=== PATIENT | female | born 2000 | race American Indian/Alaskan Native ===

== ENCOUNTER 2022-04-02 13:08 | Outpatient (CLI) | payer OTHER ==
[2022-04-02 17:22] VITALS: BP 125/57
== END 2022-04-02 17:39 | disposition home or self-care (01) ==
LOC: TRG 13:08 → APU 13:10 → TRG 17:39
PROVIDERS: ATTEND Obstetrics & Gynecology
DX: Z34.83 Encounter for supervision of other normal pregnancy, third trimester (principal); Z3A.37 37 weeks gestation of pregnancy
CPT/HCPCS: 59025

== ENCOUNTER 2022-04-08 11:19 | Inpatient (IN) | payer OTHER ==
[2022-04-08] MEDS ORDERED: TERBUTALINE 1 MG/1 ML INJ SUB-Q PRN (12:41)
[2022-04-08] MEDS ORDERED: OXYTOCIN 10 UNIT/1 ML INJ IM PRN (12:41)
[2022-04-08] MEDS ORDERED: LOPERAMIDE 2 MG CAP PO PRN (12:41)
[2022-04-08] MEDS ORDERED: CARBOPROST TROMETHAMINE 250 MCG/1 ML INJ IM PRN (12:41)
[2022-04-08] MEDS ORDERED: METHYLERGONOVINE MALEATE 0.2 MG/ML VIAL IM PRN (12:41)
[2022-04-08] MEDS ORDERED: miSOPROStol 200 MCG TAB PR PRN (12:41)
[2022-04-08] MEDS ORDERED: LIDOCAINE (2%) 20 MG/1 ML VIAL 20 ML MDV INFILTRATI ONE (12:41)
[2022-04-08] MEDS ORDERED: ACETAMINOPHEN 325 MG TAB PO PRN (12:41)
[2022-04-08] MEDS ORDERED: ePHEDrine SULFATE 50 MG/1 ML INJ IV PRN (12:41)
[2022-04-08] MEDS ORDERED: ONDANSETRON 4 MG/2 ML INJ IV PRN ×2 (12:41→20:33)
[2022-04-08] MEDS ORDERED: DINOPROSTONE 10 MG VAG SUPP VG ONE (12:41)
[2022-04-08] MEDS ORDERED: MINERAL OIL 30 ML ORAL LIQD PO PRN (12:41)
[2022-04-08] MEDS ORDERED: NalbUPHINE 10 MG/1 ML INJ IV PRN (12:41)
[2022-04-08] MEDS ORDERED: LACTATED RINGERS 1,000 ML IV SCH (12:45)
[2022-04-08] MEDS ORDERED: OXYTOCIN DRIP 30 UNITS/500 ML BAG IV SCH (13:00)
[2022-04-08 13:30] LABS: Hematocrit 28.5 % (30.3-42.9); Hemoglobin 9.5 gm/dl (10.1-14.3); Mean Corpuscular HGB Conc 33 % (30-34); Mean Corpuscular Volume 85 fl (79-97); Platelet Count 277 K/mm3 (140-440); Red Blood Count 3.36 M/mm3 (3.65-5.03); Red Cell Distribution Width 14.6 % (13.2-15.2)
[2022-04-08] MEDS: fentaNYL 100 MCG/2 ML INJ IV PRN ×2 (20:53→23:22)
--- NOTE | 2022-04-09 11:24 | History and Physical Report ---
History of Present Illness Date of examination: 04/09/22 Date of admission: 04/08/22 11:20 Chief complaint: IUGR with [facility] recommendations for delivery at 38 wks. Patient was admitted for induction. History of present illness: Primigravida. 38+1 wks. JUNIOR 04/22/22. Past History Past Medical History: no pertinent history Past Surgical History: no surgical history Family/Genetic History: none Social history: no significant social history - Obstetrical History Expected Date of Delivery: 04/22/22 Actual Gestation: 38 Week(s) 1 Day(s) : 1 Medications and Allergies Allergies Allergy/AdvReac Type Severity Reaction Status Date / Time No Known Allergies Allergy Unverified 04/02/22 13:26 Active Meds: Active Medications Acetaminophen (Acetaminophen 325 Mg Tab) 650 mg PO Q4H PRN PRN Reason: Pain, Mild (1-3) Carboprost Tromethamine (Carboprost Tromethamine 250 Mcg/1 Ml Inj) 250 mcg IM ONCE PRN PRN Reason: Uterine Bleeding Ephedrine Sulfate (Ephedrine Sulfate 50 Mg/1 Ml Inj) 10 mg IV Q2M PRN PRN Reason: Hypotension Fentanyl (Fentanyl 100 Mcg/2 Ml Inj) 100 mcg IV Q2H PRN PRN Reason: Pain,Severe (7-10) LABOR PAIN Last Admin: 04/08/22 23:22 Dose: 100 mcg Lactated Ringer's (Lactated Ringers) 1,000 mls @ 125 mls/hr IV DIRECT HELEN Last Admin: 04/08/22 20:54 Dose: 125 mls/hr Oxytocin/Sodium Chloride (Pitocin/Ns 30 Unit/500ml) 30 units in 500 mls @ 40 mls/hr IV TITR HELEN; Protocol Loperamide HCl (Loperamide 2 Mg Cap) 2 mg PO ONCE PRN PRN Reason: give with Hemabate Methylergonovine Maleate (Methylergonovine Maleate 0.2 Mg/Ml Vial) 0.2 mg IM ONCE PRN PRN Reason: Uterine Bleeding Mineral Oil (Mineral Oil 30 Ml Oral Liqd) 30 ml PO QHS PRN PRN Reason: Constipation Misoprostol (Misoprostol 200 Mcg Tab) 800 mcg [place] ONCE PRN PRN Reason: Uterine Bleeding Nalbuphine HCl (Nalbuphine 10 Mg/1 Ml Inj) 10 mg IV Q2H PRN PRN Reason: Pain, Moderate (4-6) Ondansetron HCl (Ondansetron 4 Mg/2 Ml Inj) 4 mg IV Q8H PRN PRN Reason: Nausea And Vomiting Ondansetron HCl (Ondansetron 4 Mg/2 Ml Inj) 4 mg IV Q8H PRN PRN Reason: Nausea And Vomiting Last Admin: 04/08/22 20:52 Dose: 4 mg Oxytocin (Oxytocin 10 Unit/1 Ml Inj) 10 unit IM ONCE PRN PRN Reason: Uterine Bleeding Terbutaline Sulfate (Terbutaline 1 Mg/1 Ml Inj) 0.25 mg SUB-Q ONCE PRN PRN Reason: Hyperstimulation/Hypertonicity Review of Systems All systems: negative Genitourinary: pelvic pain, other (Left Vulva blisters, tender) Rectal Exam: deferred - Vital Signs Vital signs: Vital Signs Pulse Pulse Ox 98 H 99 04/08/22 11:39 04/08/22 11:39 Temp Pulse Resp BP Pulse Ox 97.9 F 84 16 131/81 99 04/09/22 09:25 04/09/22 11:18 04/09/22 09:25 04/09/22 09:57 04/09/22 11:18 - Physical Exam Lungs: Positive: Normal air movement Abdomen: Positive: soft, distention Genitourinary (Female): Positive: perineal/vulvar lesions (Left sided) Vagina: Positive: normal moisture. Negative: discharge Cervix: Negative: lesion, discharge Uterus: Positive: enlarged, normal contour Anus/Rectum: Positive: normal perianal skin, heme negative. Negative: rectal mass, hemorrhoids Extremities: Deep Tendon Reflex Grade: Normal +2 - Obstetrical FHR: category 1 Cervical Dilatation: 1 Cervical Effacement Percentage: 90 station: 0+1 Uterine Contraction Pattern: Irregular Results Result Diagrams: 04/08/22 12:25 Abnormal lab results 04/08/22 Range/Units 12:25 RBC 3.36 L (3.65-5.03) M/mm3 Hgb 9.5 L (10.1-14.3) gm/dl Hct 28.5 L (30.3-42.9) % All other labs normal. Assessment and Plan - Patient Problems (1) IUGR (intrauterine growth restriction) affecting care of mother Current Visit: Yes Status: Acute (2) Vulvar lesion Current Visit: Yes Status: Acute (3) 38 weeks gestation of Current Visit: Yes Status: Acute Plan to address problem: In the course of a pelvic exam this morning, a crop of left vulvar lesions/early blisters were noted. Patient confirmed the area was tender since this morning. Patient and her spouse were told the lesions were suspicious for herpes infection which diagnosis required confirmation by the laboratory: The process will take a couple of days. If it was herpes, the risks to a were discussed. Patient chose a delivery to reduce risk of possible infecti on of .
[2022-04-09] MEDS ORDERED: METOCLOPRAMIDE 10 MG/2 ML INJ IV NR (11:35)
[2022-04-09] MEDS ORDERED: FAMOTIDINE 20 MG/2 ML INJ IV NR (11:35)
[2022-04-09] MEDS ORDERED: BICITRA ORAL LIQD 30ML PO NR (11:35)
[2022-04-09] MEDS ORDERED: ceFAZolin/Water 2 GM/20 ML 2 GM/20 ML SYRINGE IV NR (12:00)
[2022-04-09] MEDS ORDERED: OXYTOCIN DRIP 30 UNITS/500 ML BAG IV SCH ×2 (12:00→17:00)
[2022-04-09] MEDS ORDERED: LIDOCAINE (2%) 20 MG/1 ML VIAL 20 ML MDV INFILTRATI SCH (14:00)
[2022-04-09] MEDS ORDERED: METOCLOPRAMIDE 10 MG/2 ML INJ IV SCH (14:00)
[2022-04-09] MEDS ORDERED: BICITRA ORAL LIQD 30ML PO SCH (14:00)
[2022-04-09] MEDS ORDERED: PHENYLEPHRINE/NS 1,000 MCG/10 ML SYRINGE (OR USE) IV ONE ×3 (15:05→16:33)
[2022-04-09] MEDS ORDERED: ePHEDrine SULFATE 50 MG/1 ML INJ ONE (15:05)
[2022-04-09] MEDS ORDERED: ONDANSETRON 4 MG/2 ML INJ ONE (15:05)
[2022-04-09] MEDS ORDERED: METOCLOPRAMIDE 10 MG/2 ML INJ ONE (15:05)
--- NOTE | 2022-04-09 15:20 | Anesthesia Day of Surgery ---
Anesthesia Day of Surgery - Day of Surgery Patient Examined: Yes Patient H&P Reviewed: Yes Patient is NPO: Yes Mateus's Test: N/A
--- NOTE | 2022-04-09 15:21 | Anesthesia Consultation ---
Anesthesia Consult and Med Hx Date of service: 04/09/22 - Airway Anesthetic Teeth Evaluation: Good ROM Head & Neck: Adequate Mental/Hyoid Distance: Adequate Mallampati Class: Class II Intubation Access Assessment: Probably Good - Pulmonary Exam CTA: Yes - Cardiac Exam Cardiac Exam: RRR - Pre-Operative Health Status ASA Pre-Surgery Classification: ASA2 Proposed Anesthetic Plan: Spinal - Pulmonary Hx Asthma: Yes (As a child) COPD: No Hx Pneumonia: No - Cardiovascular System Hx Hypertension: No - Central Nervous System Hx Seizures: No Hx Psychiatric Problems: No - Endocrine Hx Renal Disease: No Hx End Stage Renal Disease: No Hx Hypothyroidism: No Hx Hyperthyroidism: No - Hematic Hx Anemia: No Hx Sickle Cell Disease: No - Other Systems Hx Alcohol Use: No
[2022-04-09] MEDS ORDERED: WATER FOR IRRIG STERILE 1,500 ML BOTTLE IR ONE (15:48)
[2022-04-09] MEDS ORDERED: SODIUM CHLORIDE 0.9% IRR 1,500 ML BOTTLE IR ONE (15:48)
[2022-04-09 16:08] LABS: Basophils % (Auto) 0.4 % (0.0-1.8); Eosinophils % (Auto) 0.5 % (0.0-4.3); Hemoglobin 9.4 gm/dl (10.1-14.3); Lymphocytes # (Auto) 1.7 K/mm3 (1.2-5.4); Lymphocytes % (Auto) 22.7 % (13.4-35.0); Mean Corpuscular HGB Conc 34 % (30-34); Mean Corpuscular Volume 84 fl (79-97); Monocytes # (Auto) 0.5 K/mm3 (0.0-0.8); Monocytes % (Auto) 6.2 % (0.0-7.3); Platelet Count 267 K/mm3 (140-440); Red Blood Count 3.32 M/mm3 (3.65-5.03); Red Cell Distribution Width 14.7 % (13.2-15.2)
[2022-04-09] MEDS ORDERED: ONDANSETRON 4 MG/2 ML INJ IV PRN (16:51)
[2022-04-09] MEDS ORDERED: NALOXONE 0.4 MG/1 ML INJ IV PRN (16:51)
[2022-04-09] MEDS ORDERED: KETOROLAC 30 MG/1 ML INJ IV PRN (16:51)
--- NOTE | 2022-04-09 16:59 | Operative Report ---
Operative Report Operative Report: Date of surgery: April 09, 2022 Preoperative diagnoses: Intrauterine growth restriction, 38 weeks gestation, ge nital lesions. Postoperative diagnoses: The same. Operation: Lower segment transverse delivery Surgeon:Edmond Shelton MD Degreaser Operator: Divine Rosales CRNA Anesthesia: Spinal block Quantitative blood loss: 840 mL Complications: None Findings: There was a live baby girl in cephalic presentation weighing 5 pounds 10 ounces with 8/9 Apgars. The ovaries fallopian tubes and the uterus were all unremarkable gravid structures. No abnormalities were found within the lower abdomen and pelvis. Procedure in detail: The patient was taken to the operating room and given a spinal block. Patient was placed in the straight supine position and a Meza catheter was inserted. The patient was prepped in the abdomen. The drapes were placed. A timeout was done. With the go ahead from the fence post cutter, a Pfannenstiel incision was made. This incision was carried across the subcutaneous layer to the fascia which was also divided transversely. The recti abdominis muscle flaps were stripped from the fascia using a combination of blunt and sharp dissections. The muscles were in the midline to gain access to the anterior parietal peritoneum which was divided after excluding any underlying viscera. The access to the peritoneal cavity was then widened by manual stretching. The bladder blade was applied. The utero vesicle peritoneal flap was divided transversely allowing the bladder to be displaced caudally. The uterine incision was placed in the lower segment transversely. The uterine incision was carried to the decidual layer. The uterine incision was extended on both sides using the bandage scissors. The amniotic sac was ruptured with clear fluid. The head was lifted out of the false maternal pelvis and delivered through the incision using fundal pressure. The airways were bulb suctioned beginning with the mouth. Continuing fundal pressure combined with traction on the mandibular processes of the jaw delivered the rest of the baby. The umbilical cord was double clamped and divided. The baby was carefully transferred to the pediatric team. The placenta was manually removed from the uterine cavity. The uterine cavity was explored and was empty of any placental remnants. The uterine incision was repaired in 2 layers with #1 Vicryl. The surgical line on the uterus was hemostatic. Blood and clots were cleared from the peritoneal cavity. The anterior parietal peritoneum was repaired with #1 Vicryl. The fascia was repaired with #1 Vicryl. The subcutaneous layer was made hemostatic using the Bovie before the skin was closed subcuticularly with 4-0 Vicryl. There were no complications. The quantitative blood loss was 840 mL. All sponges and instrument counts were correct. Patient was safely transferred to the recovery room.
[2022-04-09] MEDS ORDERED: WITCH HAZEL/ GLYCERIN PAD TP PRN (17:00)
[2022-04-09] MEDS ORDERED: ACETAMINOPHEN 325 MG TAB PO PRN (17:00)
--- NOTE | 2022-04-09 17:12 | Progress Note ---
Spinal Anesthesia Block - Spinal Anesthesia Block Start Time: 15:35 Stop Time: 15:39 Performed by:: TALIA JAIN Procedure: Spinal H&P, labs were reviewed. Patient ID confirmed, all questions and concerns were answered, and consent was signed. Timeout was performed at bedside. Patient in sitting position. Sterile prep and drape was performed. 3ml of 1% lidocaine skin wheal at L3- L4 interspace. 24G PENCAN spinal needle was advanced. Clear CSF. Injected Bupivacaine 0.75% 1.6ml and 5mcg of Precedex in the spinal space. Negative paresthesia, negative blood. Patient tolerated procedure. Pt placed in supine position with ADRIANNA.
[2022-04-09] MEDS ORDERED: LANOLIN/ZINC/DIMETHICONE (LANSINOH) 7 GM TP PRN (17:30)
[2022-04-09] MEDS ORDERED: IBUPROFEN 600 MG TAB PO PRN (17:30)
[2022-04-09] MEDS ORDERED: PROMETHAZINE 25 MG RECT SUPP PR PRN (18:00)
[2022-04-09] MEDS ORDERED: MORPHINE 2 MG/1 ML INJ IV PRN (18:00)
[2022-04-09] MEDS: MORPHINE 4 MG/1 ML INJ IV PRN (21:57)
[2022-04-09] MEDS ORDERED: LACTATED RINGERS 1,000 ML IV SCH (23:15)
[2022-04-10] MEDS: KETOROLAC 30 MG/1 ML INJ IV PRN ×2 (00:22→08:27)
[2022-04-10] MEDS: ceFAZolin/NS 1 GM/50 ML 1 GM/50 ML BAG IV SCH ×2 (00:25→08:37)
[2022-04-10 05:14] LABS: Hematocrit 26.3 % (30.3-42.9); Hemoglobin 8.7 gm/dl (10.1-14.3)
--- NOTE | 2022-04-10 09:19 | Progress Note ---
Assessment and Plan - Patient Problems (1) IUGR (intrauterine growth restriction) affecting care of mother Current Visit: Yes Status: Resolved (2) Vulvar lesion Current Visit: Yes Status: Acute (3) 38 weeks gestation of Current Visit: Yes Status: Resolved (4) Status post delivery Current Visit: Yes Status: Acute Plan to address problem: Was ambulant in room and doing great. Stable. Subjective - Subjective Date of service: 04/10/22 Principal diagnosis: Status post day 1. Interval history: Primigravida. 38+1 wks. JUNIOR 04/22/22. Day 1 post . No complaints. Patient reports: appetite normal, voiding normally, pain well controlled, ambulating normally [place]: doing well Objective - Vital Signs Latest vital signs: Vital Signs Temp Pulse Resp BP BP Pulse Ox Pulse Ox 04/10/22 04:27 98.1 F 84 18 129/80 98 04/10/22 01:17 98.0 F 92 H 18 138/76 98 04/09/22 21:57 18 04/09/22 20:32 97.3 F L 90 18 133/83 99 04/09/22 19:40 99 04/09/22 18:45 98.7 F 95 H 20 116/47 97 04/09/22 18:05 75 18 119/67 98 04/09/22 17:55 97.4 F L 81 18 119/73 98 04/09/22 17:40 76 19 120/60 98 04/09/22 17:25 81 19 108/47 98 04/09/22 17:10 87 18 98/38 98 04/09/22 17:05 87 18 95/41 98 04/09/22 17:02 97 F L 89 18 88/47 98 04/09/22 14:26 69 91 04/09/22 14:21 107 H 99 04/09/22 14:16 108 H 97 04/09/22 14:11 106 H 98 04/09/22 14:09 98.2 F 16 04/09/22 14:06 97 H 96 04/09/22 14:01 84 98 04/09/22 13:56 93 H 98 04/09/22 13:51 97 H 99 04/09/22 13:47 98 H 94 04/09/22 13:46 90 97 04/09/22 13:41 83 94 04/09/22 13:36 74 96 04/09/22 13:32 95 H 92 04/09/22 13:31 94 H 91 04/09/22 13:27 92 H 93 04/09/22 13:26 91 H 95 04/09/22 13:22 85 141/71 04/09/22 13:21 81 97 04/09/22 13:18 87 94 04/09/22 13:16 91 H 94 04/09/22 13:11 97 H 94 04/09/22 13:06 91 H 94 04/09/22 13:05 90 94 04/09/22 13:01 86 95 04/09/22 13:00 95 H 93 04/09/22 12:56 89 94 04/09/22 12:53 88 94 04/09/22 12:51 87 96 04/09/22 12:46 74 98 04/09/22 12:41 98 H 98 04/09/22 12:36 89 99 04/09/22 12:31 95 H 97 04/09/22 12:26 91 H 97 04/09/22 12:21 81 97 04/09/22 12:16 86 98 04/09/22 12:11 84 98 04/09/22 12:06 88 99 04/09/22 12:01 88 98 04/09/22 11:56 86 97 04/09/22 11:51 93 H 97 04/09/22 11:46 85 97 04/09/22 11:41 89 100 04/09/22 11:36 98 H 99 04/09/22 11:28 101 H 100 04/09/22 11:23 84 98 04/09/22 11:18 84 99 04/09/22 11:13 81 99 04/09/22 11:08 80 98 04/09/22 11:03 106 H 100 04/09/22 10:58 84 98 04/09/22 10:53 87 99 04/09/22 10:48 79 99 04/09/22 10:43 88 99 04/09/22 10:38 85 100 04/09/22 10:33 82 100 06 10:28 86 100 04/09/22 10:23 83 99 04/09/22 10:18 85 97 04/09/22 10:13 88 98 04/09/22 10:08 87 98 04/09/22 10:03 80 99 04/09/22 09:58 82 99 04/09/22 09:57 76 131/81 04/09/22 09:53 76 97 04/09/22 09:48 84 97 04/09/22 09:43 91 H 98 04/09/22 09:25 97.9 F 16 Intake and Output 04/09/22 04/10/22 04/10/22 23:59 07:59 15:59 Intake Total 2500 250 Output Total 1000 300 Balance 1500 -50 Intake: IV 2500 50 ANCEF/NS 1 GM/50 ML 1 gm 50 In 50 ml @ 100 mls/hr IV Q8H [facility] Rx#:[id number] Oral 200 Output: Urine 1000 300 Uretheral (Meza) 300 Other: Total, Intake Amount 200 Estimated Blood Loss 840 - Exam Breasts: Present: deferred Lungs: Present: Normal air movement Abdomen: Present: normal appearance, soft, normal bowel sounds Uterus: Present: normal, firm Extremities: Present: normal Deep Tendon Reflex Grade: Normal +2 Incision: Present: normal, dry, intact - Labs Labs: Abnormal lab results 04/09/22 04/10/22 Range/Units 15:23 04:23 RBC 3.32 L (3.65-5.03) M/mm3 Hgb 9.4 L 8.7 L (10.1-14.3) gm/dl Hct 28.0 L 26.3 L (30.3-42.9) % Seg Neutrophils % 70.2 H (40.0-70.0) %
[2022-04-10] MEDS: PRENATAL VIT27-FE FUMARATE-FOLIC ACID VIT TAB PO SCH (09:21)
[2022-04-10] MEDS: IBUPROFEN 800 MG TAB PO PRN (14:14)
[2022-04-10] MEDS: HYDROcodone/ACETAMINOPHEN 5-325 MG TAB PO PRN ×2 (16:29→23:53)
--- NOTE | 2022-04-10 20:02 | Post Anesthesia Evaluation ---
- Post Anesthesia Evaluation Patient Participated: Yes Airway Patent: Yes Stable Respiratory Function: Yes Nausea/Vomiting: No Temp > 96.8F: Yes Pain Manageable: Yes Adequeate Hydration: Yes Anesthesia Complications: Yes Block Receding Appropriately: Yes
[2022-04-11] MEDS: IBUPROFEN 800 MG TAB PO PRN (03:58)
[2022-04-11] MEDS: PRENATAL VIT27-FE FUMARATE-FOLIC ACID VIT TAB PO SCH (10:05)
--- NOTE | 2022-04-11 12:02 | Progress Note ---
Assessment and Plan - Patient Problems (1) IUGR (intrauterine growth restriction) affecting care of mother Current Visit: Yes Status: Resolved (2) Vulvar lesion Current Visit: Yes Status: Acute (3) 38 weeks gestation of Current Visit: Yes Status: Resolved (4) Status post delivery Current Visit: Yes Status: Acute Plan to address problem: Ready for home Subjective - Subjective Date of service: 04/11/22 Principal diagnosis: Status post day 2. Interval history: Primigravida. 38+1 wks. JUNIOR 04/22/22. Day 1 post . No complaints. Doing well and ready for home. Patient reports: appetite normal, voiding normally, pain well controlled, ambulating normally [place]: doing well Objective - Vital Signs Latest vital signs: Vital Signs Temp Pulse Resp BP BP Pulse Ox Pulse Ox 04/11/22 10:40 100 04/11/22 09:05 98 04/11/22 07:26 98.0 F 75 16 125/80 99 04/11/22 00:00 98.8 F 88 16 119/75 04/10/22 20:05 98 04/10/22 16:47 98.3 F 88 20 127/79 98 04/10/22 12:37 98.5 F 98 H 20 127/75 98 Intake and Output 04/10/22 04/11/22 04/11/22 23:59 07:59 15:59 Intake Total 620 240 Output Total 600 Balance 20 240 Intake: Oral 320 240 Intake, Free Water 300 Output: Urine 600 Void 600 Other: Total, Intake Amount 320 240 Total, Output Amount 600 # Voids Void 1 1 1 - Exam Lungs: Present: Normal air movement Abdomen: Present: normal appearance Uterus: Present: normal, firm Extremities: Present: normal Deep Tendon Reflex Grade: Normal +2 Incision: Present: normal, dry, intact
--- NOTE | 2022-04-11 12:04 | Discharge Summary ---
Providers - Providers Date of Admission: 04/08/22 11:20 Date of discharge: 04/11/22 Attending physician: SAMANTHA KELLER MD Primary care physician: SAMANTHA KELLER MD Hospitalization Reason for admission: induction of labor, IUP at term Delivery: Procedure: section Episiotomy: none Laceration: none Incision: normal, dry Other procedures: none complications: none Discharge diagnosis: IUP at term delivered baby: female Condition at discharge: Good Disposition: 01 HOME / SELF CARE / HOMELESS - Discharge Diagnoses (1) IUGR (intrauterine growth restriction) affecting care of mother Status: Resolved (2) Vulvar lesion Status: Acute (3) 38 weeks gestation of Status: Resolved (4) Status post delivery Status: Acute Plan - Provider Discharge Summary Activity: routine, no sex for 6 weeks, no heavy lifting 4 weeks, no strenuous exercise Diet: routine Instructions: routine Additional instructions: [] Smoking cessation referral if applicable(refer to patient education folder for contact #) [] Refer to [facility]'s [facility] Booklet Call your doctor immediately for: * Fever > 100.5 * Heavy vaginal bleeding ( >1 pad per hour) * Severe persistent headache * Shortness of breath * Reddened, hot, painful area to leg or breast * Drainage or odor from incision. * Keep incision clean and dry at all times and follow doctor's instructions regarding bathing/showering - Follow up plan Follow up: SAMANTHA KELLER MD [Primary Care Provider] - 7 Days
[2022-04-11] MEDS: HYDROcodone/ACETAMINOPHEN 5-325 MG TAB PO PRN (12:10)
[2022-04-11] MEDS: MORPHINE 4 MG/1 ML INJ IV PRN (19:22)
[2022-04-12] MEDS: MORPHINE 4 MG/1 ML INJ IV PRN (01:15)
[2022-04-12] MEDS: IBUPROFEN 800 MG TAB PO PRN (04:13)
[2022-04-12 07:48] VITALS: BP 124/80
[2022-04-12] MEDS: HYDROcodone/ACETAMINOPHEN 5-325 MG TAB PO PRN (10:40)
[2022-04-12] MEDS: PRENATAL VIT27-FE FUMARATE-FOLIC ACID VIT TAB PO SCH (11:59)
== END 2022-04-12 13:36 | disposition home or self-care (01) | DRG 766 ==
LOC: TRG 11:19 → LD 11:20 → TRG 12:46 → APU 04-09 15:28 → OB 04-09 18:20
PROVIDERS: ADMIT Obstetrics & Gynecology; ATTEND Obstetrics & Gynecology
PROC: 10D00Z1 Extraction of Products of Conception, Low, Open Approach (ICD-10-PCS; principal; 2022-04-09)
DX: O36.5930 Maternal care for other known or suspected poor fetal growth, third trimester, not applicable or unspecified (principal); N90.89 Other specified noninflammatory disorders of vulva and perineum; O82 Encounter for cesarean delivery without indication; Z3A.38 38 weeks gestation of pregnancy; Z37.0 Single live birth; Z20.822 Contact with and (suspected) exposure to COVID-19; O99.52 Diseases of the respiratory system complicating childbirth; O75.89 Other specified complications of labor and delivery
CPT/HCPCS: 36415; 59200; 85014; 85018; 85025; 85027; 86592; 86850; 86900; 86901; 88307; G0378; J3490; J7121; J0690; J1885; J2270; J2370; J2405; J2765; J3010; J7120; U0003